=== PATIENT | female | born 1975 | race Hispanic/Latino ===

== ENCOUNTER 2023-12-10 11:48 | Emergency (ER) | payer OTHER, MEDICAID, SELFPAY ==
[2023-12-10 11:52] VITALS: BP 162/76; PULSE 87; RESP 18; TEMP 36.6; O2SAT 100; BMI 43.4
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
--- NOTE | 2023-12-10 13:11 | PC.NURSE ---
C Collar removed by Dr. Arrington.
[2023-12-10 13:16] VITALS: BP 130/76; PULSE 79; RESP 16; TEMP 37.1; O2SAT 100
[2023-12-10] MEDS: HYDROCODONE/ACET 5/325 TABLET 1 TAB PO (13:20)
[2023-12-10] MEDS: ONDANSETRON 4 MG ODT SL (13:20)
[2023-12-10] MEDS: KETOROLAC 30 MG/ML VIAL IM (13:21)
== END 2023-12-10 13:45 | disposition home or self-care (01) ==
PROVIDERS: Emergency Provider Emergency Medicine; PCP Family Medicine
DX: S00.83XA Contusion of other part of head, initial encounter (principal); S16.1XXA Strain of muscle, fascia and tendon at neck level, initial encounter; S00.81XA Abrasion of other part of head, initial encounter; V89.2XXA Person injured in unspecified motor-vehicle accident, traffic, initial encounter
CPT/HCPCS: 70450; 70486; 72125; 96372; 99284; J1885